=== PATIENT | male | born 1945 | race Caucasian/White ===

== ENCOUNTER 2017-10-27 09:17 | Outpatient (CLI) | payer MEDICARE, OTHER ==
--- NOTE | 2017-10-27 15:11 | Ultrasound Report ---
AORTA SCREENIN10/27/2017 CLINICAL INDICATION: A 71-year-old for screening. TECHNIQUE: Real-time sonographic images were performed by the professional services consultant through the aorta. Multiple sales representative printing paper static images were saved for review. FINDINGS: The abdominal aorta is normal in caliber, measuring 2.8 cm proximally, 2.2 cm in the mid portion, and 2.0 cm distally. The iliacs are normal in caliber. No free fluid is present. IMPRESSION: NO EVIDENCE OF ABDOMINAL AORTIC ANEURYSM. TD: 10/27/2017 11:06
== END 2017-10-27 09:18 | disposition home or self-care (01) ==
LOC: DI 09:17
PROVIDERS: ATTEND Internal Medicine
DX: Z13.6 Encounter for screening for cardiovascular disorders (principal)
CPT/HCPCS: 76706

== ENCOUNTER 2018-08-30 21:48 | Emergency (ER) | payer MEDICARE, OTHER ==
--- NOTE | 2018-08-30 22:01 | ED Physician Documentation ---
PD HPI URI - Stated complaint Stated Complaint: COUGH - Chief complaint Chief Complaint: Resp - History obtained from History obtained from: Patient - History of Present Illness Timing - onset: How many days ago (10) Timing duration: Days (10) Timing details: Gradual onset, Still present Associated symptoms: Productive cough, Dyspnea. No: Fever, Hemoptysis, Chest pain, Bilateral edema Contributing factors: No: Sick contact, COPD / asthma Similar symptoms before: Has not had sx before Recently seen: Not recently seen Review of Systems Constitutional: reports: Myalgias, Fatigue. denies: Fever, Chills Nose: reports: Congestion. denies: Rhinorrhea / runny nose Cardiac: denies: Chest pain / pressure, Palpitations Respiratory: reports: Dyspnea, Cough (repetitive to point of gagging and feeling dyspnea.). denies: Wheezing GI: reports: Diarrhea (for 2-3 weeks, foul smelling and brownish colored). denies: Nausea, Vomiting PD PAST MEDICAL HISTORY - Past Medical History Cardiovascular: None Respiratory: None Endocrine/Autoimmune: None - Present Medications Home Medications: Ambulatory Orders Medication Instructions Recorded Confirmed Albuterol Sulf [Ventolin Hfa 2 - 3 puffs INH Q4HR PRN #1 inhaler 08/30/18 Inhaler] Azithromycin [Zithromax] 0 mg PO DAILY #6 tablet 08/30/18 Benzonatate [Tessalon Perle] 100 - 200 mg PO TID PRN #30 capsule 08/30/18 Dexamethasone [Decadron] 4 mg PO DAILY #5 tablet 08/30/18 Saccharomyces Boulardii [Florastor] 250 mg PO BID #20 capsule 08/30/18 - Allergies Allergies/Adverse Reactions: Allergies Allergy/AdvReac Type Severity Reaction Status Date / Time codeine AdvReac Cramps Verified 08/30/18 22:40 PD ED PE NORMAL - Vitals Vital signs reviewed: Yes - General General: Alert and oriented X 3, No acute distress, Well developed/nourished - HEENT HEENT: Ears normal, Pharynx benign - Neck Neck: Supple, no meningeal sign, No adenopathy - Cardiac Cardiac: RRR, No murmur - Respiratory Respiratory: Clear bilaterally - Abdomen Abdomen: Soft, Non tender - Derm Derm: Normal color, Warm and dry - Extremities Extremities: No tenderness to palpate, Normal ROM s pain, No edema, No calf tenderness / cord - Neuro Neuro: Alert and oriented X 3, No motor deficit, Normal speech Results - Vitals Vitals: Oxygen O2 Source Room air - Labs Labs: Microbiology 08/30/18 23:20 Campylobacter Antigen Assay - Final Stool Stool Culture - Preliminary 08/30/18 23:20 Clostridium difficile (PCR) - Final Stool PD MEDICAL DECISION MAKING - ED course Complexity details: considered differential (main issue is the current cough and bronchitis symptoms, but ROS found he has had foul diarrhea for 2-3 weeks, so can test on that as well. ), d/w patient Departure - Departure Disposition: Home, Self Care Clinical Impression: Acute diarrhea Acute bronchitis Qualifiers: Bronchitis organism: unspecified organism Qualified Code(s): J20.9 - Acute bronchitis, unspecified Condition: Stable Record reviewed to determine appropriate education?: Yes Instructions: ED Upper Resp Infec Abx Tx Follow-Up: Max Quiroz MD [Primary Care Provider] - Prescriptions: Albuterol Sulf [Ventolin Hfa Inhaler] 2 - 3 puffs INH Q4HR PRN #1 inhaler PRN Reason: Shortness Of Air/Wheezing Azithromycin [Zithromax] 0 mg PO DAILY #6 tablet Benzonatate [Tessalon Perle] 100 - 200 mg PO TID PRN #30 capsule PRN Reason: Cough Dexamethasone [Decadron] 4 mg PO DAILY #5 tablet Saccharomyces Boulardii [Florastor] 250 mg PO BID #20 capsule Comments: The pertussis test as well as the stool tests for diarrhea will result in a day or so. Will call you with positive results. We will treat your respiratory symptoms as likely bacterial with coverage of pertussis as well just in case. Drink lots of fluids. Use Zithromax as prescribed. Decadron steroid for bronchial inflammation daily for the next 5 days. Use albuterol inhaler 2-3 puffs 4 times a day regularly for the next 7-10 days and then extra doses as needed. Tessalon if needed for cough. Given your recent diarrhea as well as the antibiotic regimen you will beyond, I would suggest an added probiotic to help with the intestines. Recheck if not improving over the next few days although there may be some cough persist for a week or 2. Discharge Date/Time: 08/30/18 23:45
[2018-08-30] MEDS ORDERED: AZITHROMYCIN 250 MG TABLET PO STA (22:35)
[2018-08-30] MEDS ORDERED: BENZONATATE 100 MG CAPSULE PO STA (22:35)
[2018-08-30] MEDS ORDERED: DEXAMETHASONE 10 MG/ML VIAL PO STA (22:35)
[2018-08-30] MEDS ORDERED: ALBUTEROL NEB 2.5 MG/3 ML INH STA (22:35)
[2018-08-30 23:27] VITALS: BP 122/71
[2018-09-03 08:36] LABS: B. PARAPERTUSSIS DNA NOT DETECTED; B. PERTUSSIS DNA NOT DETECTED; SOURCE NASAL
== END 2018-08-30 23:45 | disposition home or self-care (01) ==
LOC: ED 21:48
DX: R19.7 Diarrhea, unspecified (principal); J02.9 Acute pharyngitis, unspecified
CPT/HCPCS: 87045; 87046; 87493; 87801; 94640; 94664; 99283; A9270

== ENCOUNTER 2020-01-28 14:00 | Outpatient (CLI) | payer MEDICARE, OTHER | END 2020-01-28 14:01 | disposition home or self-care (01) | LOC: RT 14:00 | PROVIDERS: ATTEND Physician Assistant | DX: R06.02 Shortness of breath (principal) | CPT/HCPCS: 94010 ==

== ENCOUNTER 2021-10-02 14:04 | Emergency (ER) | payer MEDICARE, OTHER ==
[2021-10-02 14:21] VITALS: BP 125/74
[2021-10-02] MEDS ORDERED: KETOROLAC 60 MG/2 ML VIAL IM STA (16:53)
--- NOTE | 2021-10-02 16:57 | ED Physician Documentation ---
History of Present Illness - Stated complaint Stated Complaint: BACK PAIN - Chief complaint Chief Complaint: Back Pain - Additonal information Additional information: 75-year-old male presents emergency department for evaluation of acute on chronic low back pain. He reports that about 18 months ago he strained his back in the garden. He saw his primary care doctor who referred him for physical therapy. By adhering to a rigid course of physical therapy he was able to absolve himself of back pain and return to normal activities. Because of this he has been adherent to strict physical therapy and back strengthening exercises. He went on vacation recently and did not do the exercises when he returned from vacation about 3 weeks ago he resume the exercises but then found that he had worsening pain across his low back. He has been taking naproxen without relief of pain. Today the pain is now shooting down his right thigh. No fevers, no falls or trauma, no saddle anesthesia. No history of cancer or intravenous drug use. Review of Systems Constitutional: reports: Reviewed and negative Nose: reports: Reviewed and negative Throat: reports: Reviewed and negative Cardiac: reports: Reviewed and negative Respiratory: reports: Reviewed and negative GI: reports: Reviewed and negative : reports: Reviewed and negative Skin: reports: Reviewed and negative Musculoskeletal: reports: Back pain Neurologic: reports: Reviewed and negative Psychiatric: reports: Reviewed and negative Endocrine: reports: Reviewed and negative PD PAST MEDICAL HISTORY - Past Medical History Cardiovascular: None Respiratory: None Endocrine/Autoimmune: None : Kidney stones Psych: None Musculoskeletal: Osteoarthritis, Chronic back pain - Past Surgical History General: Appendectomy, Hiatal hernia repair Ortho: Knee replacement - Present Medications Home Medications: Ambulatory Orders Medication Instructions Recorded Confirmed Albuterol Sulf [Ventolin Hfa 2 - 3 puffs INH Q4HR PRN #1 inhaler 08/30/18 Inhaler] Azithromycin [Zithromax] 0 mg PO DAILY #6 tablet 08/30/18 Benzonatate [Tessalon Perle] 100 - 200 mg PO TID PRN #30 capsule 08/30/18 Saccharomyces Boulardii [Florastor] 250 mg PO BID #20 capsule 08/30/18 dexAMETHasone [Decadron] 4 mg PO DAILY #5 tablet 08/30/18 dexAMETHasone [Decadron] 4 mg PO DAILY #3 tablet 10/02/21 - Allergies Allergies/Adverse Reactions: Allergies Allergy/AdvReac Type Severity Reaction Status Date / Time morphine Allergy Itching Verified 10/02/21 14:15 codeine AdvReac Cramps Verified 08/30/18 22:40 - Social History Does the pt smoke?: No Smoking Status: Never smoker Does the pt drink ETOH?: No Does the pt have substance abuse?: No - Immunizations Immunizations are current?: No Immunizations: No immun - POLST Patient has POLST: No PD ED PE NORMAL - General General: Alert and oriented X 3, No acute distress, Well developed/nourished - HEENT HEENT: Atraumatic, Ears normal, Moist mucous membranes - Neck Neck: Supple, no meningeal sign, No adenopathy - Cardiac Cardiac: RRR, No murmur - Respiratory Respiratory: No respiratory distress, Clear bilaterally - Abdomen Abdomen: Normal bowel sounds, Soft - Back Back: No CVA TTP, No spinal TTP, Other (tenderness across the lower lumbar paraspinous muscles; rduced forward flexion; + straight leg right leg. 3+ patellar bilaterally. mildly antalgic gait) - Derm Derm: Normal color, Warm and dry, No rash - Extremities Extremities: No deformity, No tenderness to palpate, Normal ROM s pain - Neuro Neuro: Alert and oriented X 3, horse wrangler 2-12 intact Eye Opening: Spontaneous Motor: Obeys Commands Verbal: Oriented GCS Score: 15 Results - Vitals Vitals: Vital Signs - 24 hr 10/02/21 14:09 Temperature 35.6 C L Heart Rate 65 Respiratory 16 Rate Blood Pressure 125/74 O2 Saturation 99 Oxygen O2 Source Room air - Rads (name of study) lumbar CT Radiology: Final report received (no acute process. No fracture. Multilevel degenerative disc and facet disease. Possible intraforaminal nerve root compression at L4-L5 and L5-S1. Further assessment with nonemergent outpatient follow-up MRI is recommended) PD MEDICAL DECISION MAKING - ED course Complexity details: reviewed results, re-evaluated patient, considered differential, d/w patient ED course: 75-year-old male presents emergency department for evaluation of acute on chronic low back pain that began about 18 months ago. It had been previously well managed by doing back strengthening exercises but he did not do them for 5 days during a vacation and the pain became acutely worse. No saddle anesthesia, loss of bowel or bladder incontinence. He does endorse new numbness and tingling in the right lateral thigh. On exam he has a mildly antalgic gait and reduced forward flexion of the lumbar spine but no midline spinous tenderness. He does have a positive straight leg exam on the right. Given his age we did do a noncontrast CT of the lumbar spine which does show extensive degenerative changes as well is foraminal narrowing specifically in the L4, L5 and S1 region. These findings were discussed with the patient. He was given a shot of Toradol here in the ER with marked improvement in his symptoms. I will discharge him with a short course of Decadron. He will follow-up with his primary care doctor to obtain outpatient MRI. Emergent worrisome return precautions discussed. 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 The CT suggests fairly extensive degenerative disc disease as well as some narrowing of the space in the spinal cord where the nerve roots come out. This is likely why you have the numbness in the thigh. Please fill the prescription for the Decadron and begin taking as directed. I think it is appropriate to continue your back exercises. I would follow-up with your primary care provider to discuss this ED visit. They may want to consider ordering an outpatient MRI. Return to the ER if you develop numbness or tingling in your genital area, lose control of your bowel or bladder function, or have sudden severe weakness in your leg.
--- NOTE | 2021-10-02 17:33 | CT Report ---
PROCEDURE: LUMBAR SPINE WO INDICATIONS: low back pain TECHNIQUE: Noncontrast 3 mm thick sections acquired from the T12 level to the sacrum. Sagittal and coronal refo rmats were constructed. For radiation dose reduction, the following was used: automated exposure co ntrol, adjustment of mA and/or kV according to patient size. COMPARISON: None. FINDINGS: Image quality: Excellent. Bones: There is normal bony alignment. No acute vertebral body compression fractures. No suspiciou s lytic or blastic bony lesions. Central spinal caliber is of normal overall caliber. No pars defec ts. Multilevel endplate osteophyte formation and disc space narrowing. Mild multifocal canal stenose s. Multilevel foraminal stenoses, worst at L2-L3, L3-L4, L4-L5, and L5-S1, where there are moderate t o severe canal stenoses. Possible nerve root compression bilaterally at L4-L5 and L5-S1. Soft tissues: No retroperitoneal masses or hematomas. Visualized aorta is normal in caliber. IMPRESSION: 1. No acute process. No fracture. 2. Multilevel degenerative disc and facet disease. Possible intraforaminal nerve root compression at L4-L5 and L5-S1. Further assessment with nonemergent outpatient follow-up MRI is recommended. Reviewed by: Shanel Jesus MD on 10/02/2021 5:32 PM PST Approved by: Shanel Jesus MD on 10/02/2021 5:32 PM PST Station ID: [id number]
== END 2021-10-02 18:20 | disposition home or self-care (01) ==
LOC: ED 14:04
DX: M47.26 Other spondylosis with radiculopathy, lumbar region (principal); M51.17 Intervertebral disc disorders with radiculopathy, lumbosacral region
CPT/HCPCS: 96372; 99284

== ENCOUNTER 2023-09-20 08:00 | Outpatient (CLI) | payer MEDICARE, OTHER | END 2023-09-20 08:01 | disposition home or self-care (01) | LOC: LAB.N 08:00 | PROVIDERS: ATTEND Physician Assistant | DX: J06.9 Acute upper respiratory infection, unspecified (principal) ==